=== PATIENT | female | born 1955 | race Caucasian/White ===

== ENCOUNTER 2020-08-25 13:02 | Emergency (ER) | payer MEDICARE ==
[2020-08-25] MEDS ORDERED: Sodium Chloride 0.9% 10 ML Syringe FLUSH PRN (13:13)
[2020-08-25] MEDS: Aspirin 81 MG Tab.Chew PO ONE (13:35)
--- NOTE | 2020-08-25 13:38 | EDM.PDOC ---
ED HPI GENERAL MEDICAL PROBLEM - General Stated Complaint: left face and arm numbness Time Seen by Provider: 08/25/20 13:15 Source of Information: Reports: Patient History Limitations: Reports: No Limitations - History of Present Illness INITIAL COMMENTS - FREE TEXT/NARRATIVE: Patient flew into [facility] from [facility] 08/23 for her mother's birthday. She noted left eyelid swelling but did not see a provider for it. She can noted swollen feet since the flight also. Does not take a diuretic. Today while sitting at home at 10 am, she noted left facial tingling , left arm tingling at the shoulder. She became concerned for stroke as she has had a tia in the past. Had similar symptoms. went to the ED, had evaluation and sent home. Never on aspirin or blood thinners. She came to the Ed with her sister. No other neurological issues. Normal speech, states the vision in the left eye is slightly changed but she can see out of it . Able to ambulate and move all extremities. Duration: Hour(s):, Constant Location: Reports: Head (left eye and side of face), Face, Neck (left neck stiffness), Upper Extremity, Left Quality: Reports: Other (tingling) Severity: Mild Worsens with: Reports: None Associated Symptoms: Reports: No Other Symptoms - Related Data Allergies Allergy/AdvReac Type Severity Reaction Status Date / Time No Known Allergies Allergy Verified 08/25/20 14:49 Past Medical History Cardiovascular History: Reports: High Cholesterol, Hypertension Neurological History: Reports: TIA - Past Surgical History HEENT Surgical History: Reports: Tonsillectomy GI Surgical History: Reports: Appendectomy Female Surgical History: Reports: Breast Biopsy, Section Musculoskeletal Surgical History: Reports: ORIF Social & Family History - Tobacco Use Tobacco Use Status *Q: Current Every Day Tobacco User - Alcohol Use Alcohol Use History: No - Recreational Drug Use Recreational Drug Use: No Drug Use in Last 12 Months: No ED ROS GENERAL - Review of Systems Review Of Systems: See Below Constitutional: Reports: No Symptoms HEENT: Reports: Eye Pain (left and left eye swelling with some blurriness of the vision) Respiratory: Reports: No Symptoms. Denies: Shortness of Breath Cardiovascular: Reports: No Symptoms. Denies: Chest Pain Endocrine: Reports: No Symptoms GI/Abdominal: Reports: No Symptoms. Denies: Abdominal Pain, Anorexia, Nausea, Vomiting Musculoskeletal: Reports: Neck Pain Skin: Denies: No Symptoms Neurological: Reports: Tingling (left face and left arm). Denies: Headache, Pre-Existing Deficit, Seizure, Tremors ED EXAM, NEURO - Physical Exam Exam: See Below Exam Limited By: No Limitations General Appearance: Alert, WD/WN, No Apparent Distress Eye Exam: Bilateral Eye: EOMI, Normal Inspection, PERRL, Other (no conjuntiva injection, no signs of infection) Ears: Normal External Exam, Normal Canal, Normal TMs Nose: Normal Inspection, Normal Mucosa Throat/Mouth: Normal Inspection, Normal Lips, Normal Teeth, Normal Voice Head Exam: Atraumatic Neck: Normal Inspection, Non-Tender. No: Lymphadenopathy (L), Lymphadenopathy (R) Respiratory/Chest: No Respiratory Distress, Lungs Clear, Normal Breath Sounds, Chest Non-Tender Cardiovascular: Normal Peripheral Pulses, Regular Rate, Rhythm, No Murmur GI/Abdominal: Normal Bowel Sounds, Soft, Non-Tender Neurological: Alert, Normal Mood/Affect, Normal Dorsiflexion, CN II-XII Intact, Normal Plantar Flexion, No Motor/Sensory Deficits, Oriented x 3 (normal finger to nose with eyes closed, no nystagmus, negative pronator drift, normal strength upper and lower extremities, normal heel to olivier, normal sensation to light touch, normal speech. NIH 0) Back Exam: Normal Inspection Extremities: Normal Inspection, Normal Range of Motion, Non-Tender, Normal Cap illary Refill (normal strength, no deficits) Psychiatric: Normal Affect #1 Interpretation EKG Date: 08/25/20 Time: 14:05 Rhythm: NSR Rate (Beats/Min): 100 [place]: Normal P-Wave: Present QRS: Normal ST-T: Normal QT: Normal Comparison: NA - No Prior EKG Course - Orders/Labs/Meds Orders: Active Orders 24 hr Category Date Time Status Assess Neurological Status [RC] CONTINUOUS Care 08/25/20 13:15 Active Blood Glucose Check, Bedside [RC] STAT Care 08/25/20 13:15 Active Cardiac Monitoring [RC] CONTINUOUS Care 08/25/20 13:15 Active Communication Order [RC] STAT Care 08/25/20 13:15 Active EKG 12 Lead [EKG Documentation Completion] [RC] STAT Care 08/25/20 13:19 Active Height and Weight [RC] UPON Care 08/25/20 13:15 Active NIH Stroke Scale [RC] Q15M Care 08/25/20 13:15 Active Oxygen Therapy, ED [RC] ASDIRECTED Care 08/25/20 13:15 Active Vital Signs [RC] Q15M Care 08/25/20 13:15 Active Ang Head [CT] Stat Exams 08/25/20 13:19 Taken Head wo Cont [CT] Stat Exams 08/25/20 13:15 Ordered Peripheral IV Insertion Adult [OM.PC] Stat Oth 08/25/20 13:15 Ordered Peripheral IV Insertion Adult [OM.PC] Stat Oth 08/25/20 13:15 Ordered Resuscitation Status Stat Resus Stat 08/25/20 13:13 Ordered Labs: Laboratory Tests 08/25/20 08/25/20 08/25/20 Range/Units 13:09 13:15 13:15 WBC 8.3 (4.0-10.0) x10^3/uL RBC 4.65 (4.00-5.50) x10^6/uL Hgb 15.0 (12.0-16.0) g/dL Hct 42.7 (33.0-47.0) % MCV 91.8 (78.0-93.0) fL MCH 32.3 H (26.0-32.0) pg MCHC 35.1 (32.0-36.0) g/dL RDW Coeff of Kathryn 13.2 (10.0-15.0) % Plt Count 192 (130-400) x10^3/uL Neut % (Auto) 56.6 (50.0-80.0) % Lymph % (Auto) 32.1 (25.0-50.0) % [place] % (Auto) 7.9 (2.0-11.0) % Eos % (Auto) 3.0 (0.0-4.0) % Baso % (Auto) 0.4 (0.2-1.2) % PT (9.9-12.5) SEC INR (2.0-3.5) APTT (25.6-32.8) SEC Sodium 139 (136-145) mmol/L Potassium 3.8 (3.5-5.1) mmol/L Chloride 102 (98-107) mmol/L Carbon Dioxide 27 (21-32) mmol/L Anion Gap 13.8 (5-15) mmol/L BUN 20 H (7-18) mg/dL Creatinine 0.7 (0.55-1.02) mg/dL Est Cr Clr Drug Dosing TNP Estimated GFR (MDRD) > 60 Glucose 95 (70-99) mg/dL POC Glucose 99 (70-99) mg/dL Calcium 9.3 (8.5-10.1) mg/dL Corrected Calcium 10.2 H (8.5-10.1) mg/dL Total Bilirubin 0.4 (0.2-1.0) mg/dL AST 21 (15-37) U/L ALT 30 (14-59) U/L Alkaline Phosphatase 132 H (46-116) U/L Troponin I High Sens (<=51) ng/L NT-Pro-B Natriuret Pep (<=125) pg/mL Total Protein 7.9 (6.4-8.2) g/dL Albumin 2.9 L (3.4-5.0) g/dL Globulin 5.0 Albumin/Globulin Ratio 0.58 08/25/20 08/25/20 08/25/20 Range/Units 13:15 13:15 13:15 WBC (4.0-10.0) x10^3/uL RBC (4.00-5.50) x10^6/uL Hgb (12.0-16.0) g/dL Hct (33.0-47.0) % MCV (78.0-93.0) fL MCH (26.0-32.0) pg MCHC (32.0-36.0) g/dL RDW Coeff of Kathryn (10.0-15.0) % Plt Count (130-400) x10^3/uL Neut % (Auto) (50.0-80.0) % Lymph % (Auto) (25.0-50.0) % [place] % (Auto) (2.0-11.0) % Eos % (Auto) (0.0-4.0) % Baso % (Auto) (0.2-1.2) % PT 10.0 (9.9-12.5) SEC INR 0.9 L (2.0-3.5) APTT 27.0 (25.6-32.8) SEC Sodium (136-145) mmol/L Potassium (3.5-5.1) mmol/L Chloride (98-107) mmol/L Carbon Dioxide (21-32) mmol/L Anion Gap (5-15) mmol/L BUN (7-18) mg/dL Creatinine (0.55-1.02) mg/dL Est Cr Clr Drug Dosing Estimated GFR (MDRD) Glucose (70-99) mg/dL POC Glucose (70-99) mg/dL Calcium (8.5-10.1) mg/dL Corrected Calcium (8.5-10.1) mg/dL Total Bilirubin (0.2-1.0) mg/dL AST (15-37) U/L ALT (14-59) U/L Alkaline Phosphatase (46-116) U/L Troponin I High Sens 4 (<=51) ng/L NT-Pro-B Natriuret Pep 41 (<=125) pg/mL Total Protein (6.4-8.2) g/dL Albumin (3.4-5.0) g/dL Globulin Albumin/Globulin Ratio Meds: Medications Discontinued Medications Generic Name Dose Route Start Last Admin Trade Name Freq PRN Reason Stop Dose Admin Aspirin 324 mg 08/25/20 13:13 08/25/20 13:35 Aspirin 81 Mg Tab.Chew PO 08/25/20 13:14 324 mg ONETIME ONE Administration Furosemide 20 mg 08/25/20 14:17 08/25/20 14:48 Furosemide 20 Mg Tab PO 08/25/20 14:18 20 mg ONETIME ONE Administration Sodium Chloride 10 ml 08/25/20 13:13 Sodium Chloride 0.9% 10 Ml Syringe FLUSH ASDIRECTED PRN Keep Vein Open - Radiology Interpretation Free Text/Narrative:: head ct non contrast with no acute findings interpreted by radiology CT angio head and neck negative for acute findings. interpreted by radiology. - Re-Assessments/Exams Free Text/Narrative Re-Assessment/Exam: 08/25/20 13:05 code stroke was called, but outside the three hour window. IV established, blood glucose 99, ct head, cta head and neck. aspirin 324 mg po. will get labs, EKG. NIH 0 08/25/20 14:15 Laboratory tests are negative. ct head normal, some peripheral edema. awaiting ct angio test. Can give a dose of lasix PO for edema. 20 mg po 08/25/20 14:53 ABCDE2 score is 3. symptoms are resolved. Discussed TIA versus stroke. advised 325 mg aspirin daily. Needs echocardiogram and doppler of carotids at home. Going home in 5 days. Will set up and get organized. Understands to return to medical care [facility] for new neurological deficit. Departure - Departure Time of Disposition: 14:55 Disposition: Home, Self-Care 01 Clinical Impression: TIA (transient ischemic attack), Paresthesia, Peripheral edema - Discharge Information *PRESCRIPTION DRUG MONITORING PROGRAM REVIEWED*: Not Applicable *COPY OF PRESCRIPTION DRUG MONITORING REPORT IN PATIENT ALAYNA: Not Applicable Instructions: Transient Ischemic Attack, [id number], Paresthesia, [id number], Edema Additional Instructions: Testing today was normal and no evidence of stroke was noted with resolution of your symptoms. You were advised to set up a echocardiogram ( ultrasound of the heart) and ultrasound of the carotid arteries at home. start a 325 mg aspirin daily, you were given one in the ED. You need to return to medical care for new neurlogical deficits that occur within 3 hours of onset. You were given lasix in the ED for peripheral swelling. Watch your sodium intake. This medication will increase your urine output in the next couple of hours. - My Orders Last 24 Hours: My Active Orders 08/25/20 13:13 Resuscitation Status Stat 08/25/20 13:15 Assess Neurological Status [RC] CONTINUOUS Blood Glucose Check, Bedside [RC] STAT Cardiac Monitoring [RC] CONTINUOUS Communication Order [RC] STAT Height and Weight [RC] UPON NIH Stroke Scale [RC] Q15M Oxygen Therapy, ED [RC] ASDIRECTED Vital Signs [RC] Q15M Head wo Cont [CT] Stat Peripheral IV Insertion Adult [OM.PC] Stat Peripheral IV Insertion Adult [OM.PC] Stat 08/25/20 13:19 EKG 12 Lead [EKG Documentation Completion] [RC] STAT Ang Head [CT] Stat - Assessment/Plan Last 24 Hours: My Active Orders 08/25/20 13:13 Resuscitation Status Stat 08/25/20 13:15 Assess Neurological Status [RC] CONTINUOUS Blood Glucose Check, Bedside [RC] STAT Cardiac Monitoring [RC] CONTINUOUS Communication Order [RC] STAT Height and Weight [RC] UPON NIH Stroke Scale [RC] Q15M Oxygen Therapy, ED [RC] ASDIRECTED Vital Signs [RC] Q15M Head wo Cont [CT] Stat Peripheral IV Insertion Adult [OM.PC] Stat Peripheral IV Insertion Adult [OM.PC] Stat 08/25/20 13:19 EKG 12 Lead [EKG Documentation Completion] [RC] STAT Ang Head [CT] Stat
--- NOTE | 2020-08-25 13:46 | CT ---
[id number] CT/CT Head Stroke Protocol EXAM: NONCONTRAST HEAD CT INDICATION: STROKE. COMPARISON: August 25, 2020. DISCUSSION: The ventricles and sulci are normal in size and configuration. The mendez and white matter are normal in attenuation. No mass effect or midline shift. No acute hemorrhage or extra-axial fluid collection. No acute territorial infarct is identified. A limited look at the orbits and paranasal sinuses is unremarkable. Results called at 1:42 PM on 08/25/2020. IMPRESSION: 1. No acute findings. Yonathan Amaya MD 08/25/20 [id number] Thank you for allowing us to participate in the care of your patient.
[2020-08-25 13:53] LABS: CHLORIDE,CL 102 mmol/L (98-107); SODIUM,NA 139 mmol/L (136-145)
[2020-08-25 13:54] LABS: ANION GAP 13.8 mmol/L (5-15)
--- NOTE | 2020-08-25 14:40 | CT ---
[id number] CT/CTA Head Neck EXAM: CT angiogram head and neck INDICATION: STROKE COMPARISON: Head CT same date. DISCUSSION: Aortic arch: Scattered plaque. Limited imaging of the aortic arch is otherwise unremarkable. Right carotid artery: Focal hard plaque at the origin and in the proximal aspect of the internal carotid artery. Mild to moderate plaque in the cavernous segment of the internal carotid artery. No significant stenosis, aneurysmal dilation or dissection. Left carotid artery: Mild hard plaque at the carotid bifurcation, in the cavernous segment of the internal carotid artery, and at the origin of the common carotid artery. No significant stenosis, aneurysmal dilation, dissection or other acute findings. Right vertebral artery: Mild hard plaque involving the distal cervical segment. No significant stenosis, aneurysm, dissection or other acute findings. Left vertebral artery: Mild plaque involving the intracranial segment. No significant stenosis, aneurysmal dilation or dissection. Basilar artery: Normal in caliber. No significant stenosis or other abnormality. [place]: Conventional morphology. No vessel cut off, significant stenosis, aneurysm or vascular malformation is identified. Dural sinuses, jugular veins and cerebral veins: Limited evaluation of the cerebral veins, dural sinuses and jugular veins is unremarkable. Brain parenchyma: Refer to head CT same date. The neck soft tissues: Unremarkable. Osseous structures: Scattered spondylosis. IMPRESSION: 1. No acute findings. Yonathan Amaya MD 08/25/20 [id number] Thank you for allowing us to participate in the care of your patient.
[2020-08-25] MEDS: Furosemide 20 MG Tab PO ONE (14:48)
[2020-08-25] MEDS: Iopamidol 612 MG/ML 100 ML Bottle IVPUSH ONE (15:07)
== END 2020-08-25 15:15 | disposition home or self-care (01) ==
LOC: VM.ED 13:02
DX: G45.9 Transient cerebral ischemic attack, unspecified (principal); R20.2 Paresthesia of skin; R60.0 Localized edema; I10 Essential (primary) hypertension; Z72.0 Tobacco use
CPT/HCPCS: 70450; 70496; 70498; 80053; 82947; 83880; 84484; 85025; 85610; 85730; 99284; A9270; Q9967; 36415; 93010